=== PATIENT | male | born 1970 | race Caucasian/White ===

== ENCOUNTER 2019-02-09 09:53 | Observation (INO) | payer BC ==
--- NOTE | 2019-02-09 10:24 | ED ---
Throat Pain/Nasal Congestion - HPI Summary HPI Summary: Pt is a 48 y/o M presenting to the ED with a chief complaint of vision issues. He states that on 01/28 he woke up with a blurred spot in his R eye that has not gotten better. Today, 02/09, he went to the outsole tacker for a visual field test and they found deficits. He also reports intermittent unsteady gait which he was told was vertigo, and thinks that his visual issue may have started multiple years ago when he experienced a brief episode of burning in his eye. He denies slurred speech, facial droop, or diplopia. Only hx is hyperlipidemia. Collections Representative report states he has inferior quadrantanopia of the R eye. - History of Current Complaint Chief Complaint: EDNeurologicalDeficit Time Seen by Provider: 02/09/19 09:57 Hx Obtained From: Patient Onset/Duration: Sudden Onset, Lasting Weeks, Still Present Severity: Mild Associated Signs And Symptoms: Positive: Negative Cough: None - Allergies/Home Medications Allergies/Adverse Reactions: Allergies Allergy/AdvReac Type Severity Reaction Status Date / Time No Known Allergies Allergy Verified 02/09/19 10:02 Home Medications: Home Medications Fenofibrate(NF) [Tricor(NF)] 145 mg PO BEDTIME 02/09/19 [History Confirmed 02/09] Finasteride TAB* [Proscar TAB*] 5 mg PO DAILY 02/09/19 [History Confirmed ] Terazosin HCl 5 mg PO BEDTIME 02/09/19 [History Confirmed 02/09/19] PMH/Surg Hx/FS Hx/Imm Hx Previously Healthy: Yes Endocrine/Hematology History: Denies: Hx Diabetes Cardiovascular History: Reports: Hx Hypercholesterolemia Denies: Hx Hypertension Infectious Disease History: No Infectious Disease History: Denies: Traveled Outside the [place] in Last 30 Days - Family History Known Family History: Positive: Other - Osteoarthritis (great great aunt) - Social History Alcohol Use: Occasionally Hx Substance Use: No Substance Use Type: Reports: None Hx Tobacco Use: Yes Smoking Status (MU): Current Some Day Smoker Type: Cigarettes Amount Used/How Often: 8-10 cigarettes/day Length of Time of Smoking/Using Tobacco: On/off 22 years Have You Smoked in the Last Year: No Review of Systems Positive: Blurred Vision. Negative: Diplopia Positive: Other - unsteady gait Neurological: Negative - facial droop Negative: Slurred Speech All Other Systems Reviewed And Are Negative: Yes Physical Exam - Summary Physical Exam Summary: Constitutional: Well-developed, Well-nourished, Alert. (-) Distressed Skin: Warm, Dry HENT: Normocephalic; Atraumatic Eyes: Conjunctiva normal, EOMI, no nystagmus. OD: inferior temporal visual deficit, OS: inferior nasal temporal deficit. Please see HPI for further opthalmologic exam Neck: Musculoskeletal ROM normal neck. (-) JVD Cardio: Rhythm regular, rate normal, Heart sounds normal; Intact distal pulses; Radial pulses are 2+ and symmetric. (-) Murmur Pulmonary/Chest wall: Effort normal. (-) Respiratory distress, (-) Wheezes, (-) Rales Abd: Soft. (-) Tenderness, (-) Distension, (-) Guarding, (-) Rebound Musculoskeletal: (-) Edema Lymph: (-) Cervical adenopathy Neuro: Alert, PERRL, Oriented x3, Strength normal, Cranial nerves II-XII are grossly intact. SILT, Strength 5/5 BUE and BLE, (-) Dysmetria, (-) Nystagmus, ambulates w steady gait. Psych: Mood and affect Normal Triage Information Reviewed: Yes Vital Signs On Initial Exam: Initial Vitals Temp Pulse Resp BP Pulse Ox 98.5 F 85 16 150/124 99 02/09/19 10:01 02/09/19 10:01 02/09/19 10:01 02/09/19 10:01 02/09/19 10:01 Vital Signs Reviewed: Yes Diagnostics - Vital Signs Vital Signs Temp Pulse Resp BP Pulse Ox 02/09/19 10:01 98.5 F 85 16 150/124 99 - Laboratory Result Diagrams: 02/09/19 10:30 02/09/19 10:30 Lab Statement: Any lab studies that have been ordered have been reviewed, and results considered in the medical decision making process. - EKG 1028 Cardiac Rate: NL - 72bpm EKG Rhythm: Sinus Rhythm ST Segment: Normal Ectopy: None Summary of EKG Findings: An EKG at 1028 shows NSR at 72bpm with nml axis, nml intervals. No STEMI. No acute changes. Re-Evaluation - Re-Evaluation 1st re-eval Re-Evaluation Time: 10:50 Comment: Upon drawing labs, pt experienced vagal episode. He was given 1 L of fluids and his vitals are stable. EENT Course/Dx - Course Course Of Treatment: 48-year-old male with a history of high cholesterol presents with right visual field deficit. - Aside from visual field deficit neurological exam unremarkable. Patient is out of the acute stroke window given the chronicity of symptoms. - Discussed with neurologist and will get MRI MRA to further workup stroke. - Diagnoses Provider Diagnoses: Visual changes Discharge - Sign-Out/Discharge Documenting (check all that apply): Patient Departure - Discharge Plan Condition: Stable Disposition: ADMITTED TO [facility] Referrals: [facility] [Outside] - Billing Disposition and Condition Condition: STABLE Disposition: Admitted to [facility] - Attestation Statements Document Initiated by Scribe: Yes Documenting Scribe: Estela Snow Provider For Whom Scribe is Documenting (Include Credential): Marina Briones MD. Scribe Attestation: IEstela, scribed for Marina Briones MD. on 02/09/19 at 1144. Scribe Documentation Reviewed: Yes Provider Attestation: The documentation as recorded by the scribe, Estela Snow accurately reflects the service I personally performed and the decisions made by me, Marina Briones MD. Status of Scribe Document: Viewed Consult Consult: 1015 - I spoke with Dr. Cheatham who recommends admitting the patient to get an MRI of his brain. 1041 - Dr. Rodas will accept the pt for admission to [facility].
--- OUTSIDE RECORDS SUMMARY | 2019-02-09 10:30 | XMS REPORT | Continuity of Care Document ---
:1970 External Reference #:[id number] Author Name Lucia Velazquez O.D. Address [address] [place] [address] Care Team Providers Name Role Phone Ahsan Kearney M.D. Primary Care Physician Unavailable Payers Date Identification Numbers Payment Provider Subscriber Policy Number: [id number] [facility] Mayco Hong PayID: [id number] [address] [place] [id number] Problems Active Problems Provider Date Hypercholesterolemia Lucia Velazquez O.D. Onset: 02/04/2019 Visual disturbance Lucia Velazquez O.D. Onset: 02/04/2019 Family History Date Family Member(s) Observation Comments General Unknown Father Unknown Mother Unknown Social History Type Date Description Comments Sex Unknown Marital Status Legal Status: Work Status Full-Time Employment ETOH Use Denies alcohol use Tobacco Use Start: Unknown Patient is a current smoker, smokes every day Recreational Drug Use Denies Drug Use Smoking Status Reviewed: 02/04/19 Patient is a current smoker, smokes every day Allergies, Adverse Reactions, Alerts Description No Known Drug Allergies Medications Active Medications SIG Qnty Indications Ordering Provider Date Eql Omeprazole Unknown 20mg Tablets Terazosin HCL Unknown 5mg Capsules Fenofibrate Micronized 145 mg Unknown 130mg Capsules Plan of Treatment 02/04/2019 - Lucia Vleazquez O.D.H53.8 Other visual disturbancesFollow up:n/ a VF and recheck with ts wed/ recheck pupils and color
--- OUTSIDE RECORDS SUMMARY | 2019-02-09 10:30 | XMS REPORT | Continuity of Care Document ---
:1970 External Reference #:[id number] Author Name Lucia Velazquez O.D. Address [address] [place] [address] Care Team Providers Name Role Phone Ahsan Kearney M.D. Primary Care Physician Unavailable Payers Date Identification Numbers Payment Provider Subscriber Policy Number: [id number] [facility] Mayco Hong PayID: [id number] [address] [place] [phone] Problems Active Problems Provider Date Hypercholesterolemia Lucia Velazquez O.D. Onset: 02/04/2019 Homonymous hemianopia Lucia Velazquez O.D. Onset: 02/09/2019 Visual disturbance Lucia Velazquez O.D. Onset: 02/04/2019 Family History Date Family Member(s) Observation Comments General Unknown Father Unknown Mother Unknown Social History Type Date Description Comments Sex Unknown Marital Status Legal Status: Work Status Full-Time Employment ETOH Use Denies alcohol use Tobacco Use Start: Unknown Patient is a current smoker, smokes every day Recreational Drug Use Denies Drug Use Smoking Status Reviewed: 02/09/19 Patient is a current smoker, smokes every day Allergies, Adverse Reactions, Alerts Description No Known Drug Allergies Medications Active Medications SIG Qnty Indications Ordering Provider Date Eql Omeprazole Unknown 20mg Tablets Terazosin HCL Unknown 5mg Capsules Fenofibrate Micronized 145 mg Unknown 130mg Capsules Procedures Date Code Description Status 02/04/2019 38993 New Patient Comprehensive Exam Completed Plan of Treatment 02/09/2019 - Lucia Velazquez O.D.H53.461 Homonymous bilateral field defects , right sideFollow up:3 mos here repeat vf
[2019-02-09 10:36] LABS: ABS Basophils 0.1 10^3/ul (0-0.2); ABS Eosinophils 0.2 10^3/ul (0-0.6); ABS Lymphocytes 2.6 10^3/ul (1.0-4.8); ABS Monocytes 0.8 10^3/ul (0-0.8); ABS Neutrophils 5.3 10^3/ul (1.5-7.7); Eosinophil % 2.4 %; Hematocrit 46 % (42-52); Hemoglobin 15.9 g/dL (14.0-18.0); Lymphocyte % 28.7 %; Mean Corpuscular HGB Conc 35 g/dL (31-36); Mean Corpuscular Hemoglobin 31 pg (27-31); Mean Corpuscular Volume 88 fL (80-94); Mean Platelet Volume 7.6 fL (7.4-10.4); Nucleated Red Blood Cells % 0.1; Platelet Count 238 10^3/uL (150-450); Red Cell Distribution Width 13 % (10-15)
[2019-02-09 10:49] LABS: INR 1.01 (0.82-1.09)
[2019-02-09] MEDS ORDERED: NS 0.9% 1000 ML** 1,000 ML IV ONE (10:58)
[2019-02-09 11:00] LABS: Albumin 4.5 g/dL (3.2-5.2); Albumin/Globulin Ratio 1.5 (1-3); BUN/Creatinine Ratio 11.8 (8-20); Calcium 9.8 mg/dL (8.6-10.3); EGFR African American 86.8 (>60); EGFR Non-African American 71.8 (>60); Globulin 3.1 g/dL (2-4); HDL Cholesterol 28.4 mg/dL; Potassium 3.8 mmol/L (3.5-5.0); Total Bilirubin 0.5 mg/dL (0.2-1.0); Total Protein 7.6 g/dL (6.4-8.9)
[2019-02-09] MEDS ORDERED: Aspirin 81 mg CHEW TAB* 81 MG TAB.CHEW PO SCH (11:00)
[2019-02-09] MEDS ORDERED: Clopidogrel TAB* 75 MG PO SCH (11:00)
[2019-02-09 12:31] LABS: Urine Appearance Clear; Urine Bacteria Absent (Absent); Urine Bilirubin Negative (Negative); Urine Blood Negative (Negative); Urine Color Straw; Urine Glucose Negative (Negative); Urine Ketones Negative (Negative); Urine Nitrite Negative (Negative); Urine Protein Negative (Negative); Urine Red Blood Cell Absent (Absent); Urine Specific Gravity 1.004 (1.010-1.030); Urine Urobilinogen Negative (Negative); Urine White Blood Cell Trace(0-5/hpf) (Absent)
[2019-02-09 12:37] LABS: TSH (Thyroid Stimulating Horm) 1.7 mcIU/mL (0.34-5.60)
--- NOTE | 2019-02-09 13:30 | CONS ---
NEUROLOGY CONSULTATION NOTE: DATE OF CONSULT: 02/09/19 CONSULTING PROVIDER: Marina Briones MD. REASON FOR CONSULT: Visual field deficit. CHIEF COMPLAINT: Loss of the right-sided visual field. HISTORY OF PRESENT ILLNESS: Mr. Mayco Lafleur is a 48-year-old left- handed man with history of hypertension, dyslipidemia, chews tobacco who woke up Thursday morning, 01/28/19, with a visual field deficit. He woke up at 7 a.m. His last known well was , 01/27/19. He noticed a constant blind spot in the right lower quadrant. He denied any headaches. He denied any double vision or blurry vision. He went to see Dr. Vazquez from ophthalmology, who did initially an ophthalmologic examination and found no abnormalities. He returned for visual field evaluation and was noted to have an inferior quadrantanopia towards the right side. This exam took place this morning. He was recommended to go to the ER for further evaluation of suspected stroke. The patient stated that over the past 5 years he has complaints of gait imbalance. He notices some swaying sometimes when ambulating. This occurs almost daily. Certain distractions like multiple environmental stimulation worsens the gait imbalance. Again, he denied any headaches, nausea, or focal weakness. He has no history of DVT or PE. He has no family history of stroke or seizures. In the ED, he had some laboratory testing that was normal. This included a WBC , hemoglobin, hematocrit, platelet count, INR, sodium, potassium, chloride, and creatinine. He had a glucose of 117. His TSH and vitamin B12 are pending. Cholesterol was 262, pending LDL level. He did not have a CT of the head as he is not a candidate for any endovascular therapy. NIH stroke scale was 1 for visual field cut. PAST MEDICAL HISTORY: Hypertension, chews tobacco, dyslipidemia. HOME MEDICATIONS: 1. Omeprazole 20 mg p.o. daily. 2. Finasteride 5 mg p.o. daily. 3. Fenofibrate 145 mg p.o. at bedtime. 4. Terazosin 5 mg p.o. at bedtime. ALLERGIES: No known drug allergies. FAMILY HISTORY: No family history of stroke or seizure. SOCIAL HISTORY: The patient is . He has 2 children. He denied any excessive alcohol use. He does drink alcohol occasionally. Right before this incident, he had friends visiting from [place] and he was consuming alcohol a few days before. He denied any daily tobacco use, but he does smoke cigarettes when he has irritation from chewing tobacco. He has been chewing tobacco for over 20 years. REVIEW OF SYSTEMS: A 14-point review of systems was obtained and otherwise negative, except for what was mentioned in the HPI. PHYSICAL EXAMINATION: Vitals: Temperature of 98.5, pulse of 85, respiratory rate of 16, oxygen of 99, blood pressure of 150/124. General: Well-nourished, well- developed man, in no acute distress. Head: Atraumatic, normocephalic without any obvious abnormality. Neck is supple and symmetric with no lymphadenopathy. No carotid bruits. Eyes: Normal sclerae and conjunctivae. Chest: Clear to auscultation bilaterally with no wheezing or rhonchi. Cardiovascular: Regular rate and rhythm with normal S1, S2 without any murmurs or gallops. Extremities: Normal range of motion with no cyanosis, hammertoes, or high arches. Skin: No skin lesions or lacerations. Psych: Broad affect and normal mood. He is easy to establish rapport with. Neurological Examination: Mental status: Awake, alert, oriented to person; place; time; and general circumstances. Speech and language; specifically comprehension, naming, and repetition were assessed and found to be normal. Cranial Nerves: Pupils equal, round, and reactive to light. Extraocular movements are intact. He has mild end-gaze nystagmus on the right. He has a prominent inferior quadrantanopia on the right, where he has loss of vision in the inferior nasal portion of the left eye and temporal inferior portion of the right eye. No ptosis. Dilated funduscopic examination reveals normal disk margins and venous pulsation. Motor Examination: Normal tone and bulk. He has got 5/5 strength in the upper and lower extremities with slightly less strength in the right shoulder abduction region, but this is mostly he stated because he is left- handed. Reflexes: 2+ on the right biceps, triceps, brachioradialis, knee and 2 in the left biceps, triceps, brachioradialis, and 1+ at the left knee; initially 2+ in the right biceps, triceps, brachioradialis, and right knee; 1+ in the ankle bilaterally. Downgoing plantar response bilaterally. Sensation is intact to light touch, pinprick throughout. There is no tactile extinction. Normal proprioception and vibratory sensation at the great toe bilaterally. Coordination: Normal finger- to-nose and [id number] testing bilaterally. Gait is normal stance and posture with no ataxia. ASSESSMENT AND RECOMMENDATIONS: Mr. Mayco Lafleur is a 48-year-old man who presented with an acute to subacute onset of visual field cut. His hand spring former had referred him here for stroke workup. 1. Acute to subacute right inferior quadrantanopia. Localization, this is mostly a lesion affecting the optic radiation. Cerebrovascular disorders account for most of these lesions. The location is mostly in the left occipital lobe given that he has no other localizing signs. Occasionally, these lesions involve the parietal lobe, but this would accompany some other neurological signs. NIH stroke scale is 1. He is not a candidate for IV TPA or mechanical thrombectomies as he is outside the therapeutic window. Once confirming this stroke with MRI, we will need to investigate the etiology. He does carry risk factors for stroke including hypertension, dyslipidemia, and chewing and smoking tobacco. However, hypercoagulable state should also be further evaluated mostly as an outpatient. Also, we need to evaluate for a patent foramen ovale or other cardioembolic sources. 2. Chronic history of vertigo and unsteady gait - unclear etiology. He does not have any evidence of neuropathy. We will evaluate for any central causes, although he is currently asymptomatic and is not complaining of any vertigo. RECOMMENDATIONS: Admit as observation. If the stroke workup is completed today , the patient can probably go home and follow up as an outpatient. I have ordered the MRI brain without contrast, MRA head without contrast, and an MRA neck without contrast. I do not suspect he has a tumor and therefore, did not order a contrasted study. The presentation is unlikely to be related to tumor given the sudden onset of symptoms the following morning. I have ordered a transthoracic echo with bubble study to look for PFO. I have started the patient on aspirin and Plavix. Please continue aspirin and Plavix therapy for a total of 21 days, then discontinue Plavix after 21 days on 03/03/19. No need for PT/OT/COMPUTER SALESPERSON RETAIL since the patient only has visual deficits. Neuro checks every 4 hours. I will discuss the case with Dr. Xavier. Follow up with neurology as an outpatient once the stroke workup is completed. [id number]/[facility] #: [id number] ADDENDUM: There is a lesion on the MRI involving the left occipital lobe. This does not look like a subacute stroke but instead a small tumor with a slight hemorrhagic core. Other differential diagnosis include abscess, subacute stroke with hemorrhage, or demyelinating disease. I have ordered an MRI brain with contrast for further evaluation. Discontinued the DAPT for now. I have updated the patient this evening. TARYN
[2019-02-09] MEDS ORDERED: Atorvastatin* 80 MG TAB PO SCH (17:00)
[2019-02-09] MEDS ORDERED: Atorvastatin* 40 MG TAB PO SCH (17:00)
--- NOTE | 2019-02-09 18:25 | HP ---
CC: Dr. Kearney; Dr. Vazquez; Dr. Cheatham * HISTORY AND PHYSICAL: DATE OF ADMISSION: 02/09/19 TIME OF EVALUATION: 11:15 a.m. PRIMARY CARE PROVIDER: Dr. Kearney. PERSONAL INVESTMENT ADVISER: Dr. Vazquez. CONSULTING NEUROLOGIST: Dr. Cheatham. CHIEF COMPLAINT: "I cannot see right from my right eye." HISTORY OF PRESENT ILLNESS: Mr. Lafleur is a 48-year-old male with a past medical history of hypertension, dyslipidemia, tobacco abuse, BPH, who presents to the emergency room with complaint of visual changes. He states he woke up on 01/28/19 with a visual field cut. He states that he went to look at himself in the mirror and realized that he was missing part of the picture. He localized this blind spot on the right lower quadrant of his visual field. He went to see Ophthalmology and described that his initial evaluation was normal. The visual disturbance persisted and he went for a followup and had a visual field evaluation where he was noted to have an inferior quadrantanopia towards the right side, so he was referred to the emergency room for further evaluation due to concern for stroke. The patient denies any similar episode of visual change like this in the past. He states that more than 10 years ago, he was evaluated for dizziness and gait imbalance, but he does not remember receiving a specific diagnosis. He denies headache, nausea, vomiting, chest pain, palpitations, diarrhea, urinary complaints, or any other focal deficit. There is no numbness, tingling , change in speech, localized weakness. PAST MEDICAL HISTORY: 1. Hypertension. 2. Hyperlipidemia. 3. BPH. 4. Tobacco abuse. MEDICATION LIST: 1. Fenofibrate 145 mg p.o. at bedtime. 2. Finasteride 5 mg p.o. daily. 3. Omeprazole 20 mg p.o. daily. 4. Terazosin 5 mg p.o. at bedtime. ALLERGIES: No known drug allergies. FAMILY HISTORY: His parents are alive and well. There is no family history of stroke or seizure in the parents or siblings. He thinks his grandfather of a heart attack, but he is not sure. SOCIAL HISTORY: The patient is a smoker. Currently, he chews tobacco every day. He states that 1 can will last him 3 days and he has been doing that for over 20 years. He states that during the week he will smoke 2 to 3 cigarettes when he has irritation in his mouth when chewing tobacco and is unable to do so. He states that he drinks 2 to 3 beers a month and he denies any drug use. Surrogate decision maker is his , Gerri Lafleur, phone number is [phone]. REVIEW OF SYSTEMS: A 14-point review of systems was performed and all the pertinent negative and positive findings are per the HPI. PHYSICAL EXAMINATION GENERAL: The patient is a pleasant, middle-aged gentleman, sitting up in the ED stretcher, in no acute distress. VITAL SIGNS: Temperature 98.5, heart rate 77, respiratory rate is 14, oxygen saturation was 100% on room air, blood pressure was 154/93. HEENT: Pupils are equal, reactive to light. Moist mucous membranes. NECK: Supple. I do not identify any carotid bruits. CHEST: Breath sounds present bilaterally with no added sounds. CVS: Normal S1, S2. Regular rate and rhythm without murmurs noted. ABDOMEN: Soft, nondistended, nontender. Bowel sounds are present. EXTREMITIES: No edema. NEURO: The patient is alert, awake, oriented x3 and able to follow commands. His speech is clear and he has good comprehension. Cranial nerves II through XII are grossly normal. He has visual field cut of the inferior quadrant on the right. He can move all 4 extremities. Strength is 5/5 in all 4 extremities. Reflexes are 1+ in both knees and there is a downgoing plantar response bilaterally. Sensation is intact. [id number] and hxnk-zn-[id number] are normal. DIAGNOSTIC STUDIES/LAB DATA: The patient had a CBC that showed a WBC of 9, hemoglobin of 15.9, hematocrit of 46, platelets of 238. INR is 1.01. Chemistry showed a sodium of 138, potassium of 3.8, chloride of 105, bicarb of 27, BUN of 13, creatinine of 1.1, glucose of 117, lactic acid is 1.7, calcium is 9.8. LFTs are normal except for mild elevation of the ALT at 55. Lipid profile showed triglycerides of 414, cholesterol of 262 with an LDL of 164. TSH is 1.7. Urinalysis showed trace LE. EKG done 02/09/19 at 10:24 a.m. shows sinus rhythm at 72 beats per minute with no acute ischemic changes. There is no prior EKG to compare. ASSESSMENT AND PLAN: Mr. Lafleur is a 48-year-old male with a past medical history of hypertension, hyperlipidemia, benign prostatic hypertrophy, tobacco abuse, who presents to the emergency room with complaints of right-sided visual field cut, being admitted for probable cerebrovascular accident workup. 1. Probable cerebrovascular accident. The patient's description of his symptoms is suggestive of an occipital area cerebrovascular accident. The plan is to have him admitted as observation to the telemetry floor and he was already seen in consultation by Neurology (Dr. Cheatham) who recommended treatment with aspirin, Plavix, statin; echocardiogram with bubble study; MRI brain, MRA head, and MRA neck without contrast. At this point, his recommendation is for aspirin and Plavix therapy for 21 days and then continue only aspirin. He will be monitored with neuro checks on telemetry. The patient was educated about his diagnosis and his risk factors including his history of hypertension, hyperlipidemia and tobacco use. 2. Hypertension. We will continue terazosin. 3. Benign prostatic hypertrophy. We will continue terazosin and finasteride. 4. Hyperlipidemia. We will give him high-dose statin, atorvastatin 80 mg as this will address his hypertriglyceridemia and elevated LDL. 5. DVT prophylaxis: The patient has a score of 1 on the DVT Prophylaxis Risk Assessment Guide and he will have SCDs while in bed and we will encourage ambulation. 6. Code status is full. TIME SPENT: Approximately 50 minutes was spent with the patient's interview, medical records review, physical examination to complete this admission, more than half of this time was spent upcx-lz-[id number] with the patient and coordination of care. [id number]/[facility] #: [id number] [facility]ITAL[facility]avan
[2019-02-09] MEDS ORDERED: Gadoteridol* (CONTRAST) 279.3 MG/ML 10 ML IV ONE (20:32)
[2019-02-09] MEDS ORDERED: Terazosin CAP* 5 MG PO SCH (21:00)
[2019-02-10] MEDS ORDERED: Pantoprazole TAB * 40 MG TAB PO SCH (09:00)
[2019-02-10] MEDS ORDERED: Finasteride TAB* 5 MG PO SCH (09:00)
[2019-02-10] MEDS ORDERED: Aspirin EC TAB* 81 MG TAB.EC PO SCH (09:00)
--- NOTE | 2019-02-10 11:40 | ECHO ---
*[facility]* [place] [address] Fax #: [phone] Transthoracic Echocardiogram Patient: Mayco Hong : 1970 Study Date: 02/10/2019 Age: 48 Gender: M HR: 66 bpm Height: 69 in /175.3 cm BSA: 2.04 m^2 Weight: 194.6 lb /88.5 kg BMI: 28.8 kg/m^2 *Tire Fabric Inspector: * Nina Cruz RDCS RN *Referring Physician: * Daysi Cheatham *Reading Physician: * Edwar Rogers MD Indications: CVA. History: Risk factors: Current tobacco use. Hypertension. Dyslipidemia. Conclusions Summary: - Left ventricle: The cavity size is normal. Wall thickness is at the upper limits of normal. Systolic function is normal. The estimated ejection fraction is 60-65%. - Atrial septum: Bubble study was negative - Mitral valve: There is trace to mild regurgitation. Study data: Transthoracic echocardiogram. Procedure: Transthoracic echocardiography was performed. Image quality was fair. The study was technically limited due to body habitus and Smoking history. Intravenous agitated saline was administered. A bubble study was performed on Images 8 and 9. Complete 2D, spectral Doppler, and color flow Doppler. Location: Bedside. Patient status: Observation. Patient room number: 433. No prior study is available for comparison. Rhythm: Normal sinus rhythm. Findings Left ventricle: The cavity size is normal. Wall thickness is at the upper limits of normal. Systolic function is normal. The estimated ejection fraction is 60-65%. Wall motion is normal; there are no regional wall motion abnormalities. Left ventricular diastolic function parameters are normal. Right ventricle: The cavity size is normal. Systolic function is normal. Left atrium: The atrium is normal in size. Right atrium: The atrium is normal in size. Atrial septum: No defect or patent foramen ovale is identified. Bubble study was negative Mitral valve: The leaflets are mildly thickened. There is no evidence of stenosis. There is trace to mild regurgitation. Aortic valve: The valve is structurally normal. The valve is trileaflet. Cusp separation is normal. There is no evidence of stenosis. There is no regurgitation. Tricuspid valve: The valve is structurally normal. There is no evidence of stenosis. There is trace regurgitation. Pulmonic valve: The valve is structurally normal. There is no evidence of stenosis. There is trace regurgitation. Aorta: Aortic root: The aortic root is appears normal. Ascending aorta: The ascending aorta is not dilated. Aortic arch: The aortic arch is not dilated. Pericardium: There is no pericardial effusion. Pulmonary arteries: The main pulmonary artery is normal-sized. Systolic pressure can not be accurately estimated. Systemic veins: Not well visualized. Measurements Left ventricle Value Ref Aortic valve Value Ref ANJELICA, LAX 4.7 cm 4.2 - Ting diam, ED 2.1 cm ---- 5.8 Ting diam/bsa, ED 1.0 cm/m^2 ---- ESD, LAX 3.1 cm 2.5 - Peak v, S 1.11 m/sec ---- 4.0 VTI, S 21.5 cm ---- FS, LAX 33 % 25 - 43 Mean grad, S 3.0 mm Hg ---- Mid-wall FS 15 % -------- Peak grad, S 5.0 mm Hg ---- PW, ED (H) 1.1 cm 0.6 - LVOT/AV, VTI ratio 0.95 ---- 1.0 E', lat ting, TDI 10.1 cm/sec >=10.0 Mitral valve Value Re f E/e', lat ting, TDI 9 -------- Peak E 0.87 m/sec ---- E', med tign, TDI 8.5 cm/sec >=7.0 Peak A 0.69 m/sec -- -- E/e', med ting, TDI 10 -------- Decel time 180 ms ---- E', avg, TDI 9.3 cm/sec -------- Peak grad, D 3.1 mm Hg ---- E/e', avg, TDI 9 <=14 Peak E/A ratio 1.3 -- -- LVOT Value Ref Pulmonic valve Value Ref Peak mvais, S 1.04 m/sec -------- Peak v, S 0.75 m/sec ---- VTI, S 20.4 cm -------- Peak grad, S 2.0 mm Hg ---- Mean grad, S 2 mm Hg -------- Aortic root Value Ref Ventricular septum Value Ref Root diam 3.3 cm <4.2 IVS, ED 1.0 cm 0.6 - 1.0 Ascending aorta Value Ref AAo AP diam, S 3.0 cm ---- Right ventricle Value Ref ANJELICA minor ax, A4C (H) 3.7 cm 1.9 - Aortic arch Value Ref mid 3.5 Arch diam 2.5 cm ---- Left atrium Value Ref Decending aorta Value Ref AP dim ES, LAX (L) 2.9 cm 3.0 - Chanda peak mavis 0.64 m/sec ---- 4.0 ML dim, A4C 3.3 cm -------- SI dim, A4C 4.1 cm -------- Vol/bsa, ES, 1-p 13 ml/m^2 12 - 37 A4C Vol/bsa, ES, A/L 18 ml/m^2 16 - 34 Right atrium Value Ref ML dim, ES, A4C 3.6 cm 2.6 - 4.4 SI dim, ES, A4C 4.0 cm 3.4 - 5.3 Legend: (L) and (H) guillermina values outside specified reference range. Prepared and electronically signed by Edwar Rogers MD 02/10/2019 11:39
--- NOTE | 2019-02-10 14:40 | PN ---
Subjective Date of Service: 02/10/19 Length of Stay: 1 Days Neurology is following for stroke. Interval History: There has been no new clinical changes overnight. He still has right lower quadrant hemianopsia. He denied any focal weakness or paresthesia. He has history of mild disorientation related to when he was on statin therapy. He is not sure if it was related to statin therapy though because it continued after he discontinued the medication. Spouse at bedside confirmed that he snores at night and, at times, has apnea. IMAGING STUDIES: - MRI brain without contrast completed on 02/09/2019: subacute infarct medial left occipital lobe. - MRA head and neck completed on 02/09/2019: no LVO or ICA stenosis. - MRI brain with contrast completed on 02/09/2019 as I was suspicious for tumor in the occipital region; There is enhancement in the medial occipital lobe but this can be seen in subacute stroke. Repeating an MRI brain with and without contrast was recommended in 3 weeks. 2D TTE completed on 02/09/2019: EF: 60-65%. Bubble study was negative. Review of Systems: Denied CP, SOB, or palpitations. Objective Active Medications: Aspirin (Aspirin Ec Tab*) 81 mg PO DAILY [facility] Last Admin: 02/10/19 09:50 Dose: 81 mg Atorvastatin Calcium (Lipitor*) 80 mg PO 2100 ONE Stop: 02/10/19 21:01 Finasteride (Proscar Tab*) 5 mg PO DAILY [facility] Last Admin: 02/10/19 08:39 Dose: 5 mg Pantoprazole Sodium (Protonix Tab*) 40 mg PO DAILY [facility] Last Admin: 02/10/19 08:39 Dose: 40 mg Terazosin HCl (Hytrin Cap*) 5 mg PO BEDTIME [facility] Last Admin: 02/09/19 21:41 Dose: 5 mg Vital Signs 02/09/19 02/09/19 02/09/19 15:15 19:00 23:00 Temperature 98.0 F 98.2 F 97.5 F Pulse Rate 62 72 82 Respiratory 16 18 14 Rate Blood Pressure 142/83 148/74 114/67 (mmHg) O2 Sat by Pulse 99 98 99 Oximetry 02/10/19 02/10/19 02/10/19 03:00 07:50 11:35 Temperature 97.6 F 98.4 F 97.8 F Pulse Rate 59 70 92 Respiratory 14 20 20 Rate Blood Pressure 136/74 127/70 131/75 (mmHg) O2 Sat by Pulse 99 100 98 Oximetry Intake and Output Last 24 Hours 02/08/19 02/09/19 02/10/19 02/11/19 06:59 06:59 06:59 06:59 Intake Total 1690 400 Output Total 0 Balance 1690 400 Weight 199 lb Intake: IV Fluids 1000 Oral 690 400 Output: Urine 0 Oxygen Devices in Use Now: None Neurology Exam: General: Well nourished, well developed, and in no acute distress HEENT: Normocephelic/atraumatic, sclera anicteric, mucous membranes moist Neck: Supple Chest: Clear to auscultation bilaterally Cardiovascular: Regular rate and rhythm without murmurs, rubs, gallops Extremities: No clubbing, cyanosis, or edema Neurological Findings: Awake, alert, and oriented to person, place, and time. Speech: fluent without dysarthria, repetition intact Cranial Nerve: PERRL, EOM intact, right inferior quadrantanopia, no nystagmus, face symmetric bilaterally, facial sensation intact, hearing intact to finger rub bilaterally, palate elevates symmetrically, tongue midline, SCM and Trapezius s/s. Motor: s/s throughout, proximal and distal extremities x4 tone/bulk normal Sensation: intact to LT/PP bilaterally upper and lower extremities Deep Tendon Reflex: 2+ symmetric in the upper/lower extremities, Babinski - down going Finger to nose, rapid alternating movements intact without tremor, no dysdiadochokinesia Gait: intact with good arm swing and stride Result Diagrams: 02/09/19 10:30 02/09/19 10:30 Microbiology and Other Data: Microbiology 02/09/19 12:05 Urine Culture - Final Urine No Growth (<1,000 CFU/mL) Assessment/Plan 1. Acute-subacute left PLATFORM CONSULTANT nonhemorrhagic stroke with petichael hemorrhage- - Repeat MRI continues to show enhancement around this region, which can be seen with subacute stroke. - NIHSS 1. Unchanged - He has no evidence of intracranial stenosis. He does have multiple risk factors for stroke: dyslipidemia, hypertension, tobacco abuse. The etiology of the stroke is cryptogenic. Given his age, hypercoagulable state and cardio emboli needs to be excluded. 2. Suspect BRIDGET 3. HTN 4. Dyslipidemia Recommendation: - The patient needs to have a THEO to evaluate for atrial or ventricular thrombus. He has no fevers. This can be done as in or outpatient. - Hypercoagulable panel to be done as an outpatient. - If THEO is negative, he will need a loop recorder placed to check for atrial fibrillation, especially since he has history of untreated BRIDGET - Continue aspirin 81 mg daily and started atorvastatin 80 mg nightly. Discontinue fenofibrates. If he develops complications related to statin therapy, then switch to Zetia. - We agreed against DAPT since he has some petechial hemorrhage on MRI and his symptoms started more than a week ago. - Stroke education was completed - Repeat MRI brain with and without contrast in 3-4 weeks to revaluate the area of enhancement. It should resolve by that time. Please arrange this with the patient's PCP. - There is no indication for anticoagulation therapy. - Needs an outpatient polysomnography. - We will arrange a follow-up appointment in 6-8 weeks. I will sign off but please contact me for any questions or concerns.
[2019-02-10 15:34] VITALS: BP 135/76
[2019-02-10] MEDS ORDERED: Atorvastatin* 80 MG TAB PO ONE (21:00)
--- NOTE | 2019-02-10 22:33 | DS ---
CC: Dr. Kearney; Dr. Vazquez; Dr. Cheatham * DISCHARGE SUMMARY: DATE OF ADMISSION: 02/09/19 DATE OF DISCHARGE: 02/10/19 PRIMARY CARE PROVIDER: Dr. Kearney DELIVERY DRIVER/CUSTOMER SERVICE: Dr. Vazquez CONSULTING NEUROLOGIST: Dr. Cheatham DISCHARGE DIAGNOSIS: Left occipital lobe cerebrovascular accident. SECONDARY DIAGNOSES: 1. Hypertension. 2. Hyperlipidemia. 3. Benign prostatic hypertrophy. 4. Tobacco abuse. MEDICATION LIST: 1. Finasteride 5 mg p.o. daily. 2. Omeprazole 20 mg p.o. daily. 3. Terazosin 5 mg p.o. at bedtime. Medication change: 1. Fenofibrate was discontinued. New medications: 1. Aspirin 81 mg p.o. daily. 2. Atorvastatin 80 mg p.o. at bedtime. HOSPITAL COURSE: is a 48-year-old male with a past medical history as stated above who presented to the emergency room with complaint of sudden loss of his right inferior quadrant visual field that happened on . He went to bed well and he woke up on 01/28/19 with this visual field cut. For more details about his presentation, I refer you to his history and physical, but in summary, the patient was admitted for a CVA workup. The patient's lipid profile showed triglycerides of 440 with total cholesterol 262 and LDL of 164. He had an MRI of the brain that showed imaging compatible with subacute infarct of the left occipital lobe. There is associated petechial hemorrhage with only mild local mass effect. Mild chronic small vessel disease is likely. The patient had an MRA of the brain that showed no acute occlusive disease of the proximal major intracranial vessels. The distal P4 segments of the left CARDIOLOGY PHYSICIAN are diminutive in the region of the infarcted left occipital lobe. No significant stenosis or aneurysm. MRA of the neck showed no acute occlusive disease. Transthoracic echocardiogram was performed and it showed that the left ventricle cavity size is normal. Wall thickness is at the upper limits of normal. Systolic function is normal. Ejection fraction is 60% to 65%. Bubble study was negative and there is trace to mild mitral valve regurgitation. The patient had no significant arrhythmia while on telemetry and he developed no other symptoms. Dr. Cheatham was concerned that this occipital lobe lesion could be a tumor so the patient underwent an MRI of the brain with contrast that showed findings consistent with a subacute infarct on the medial left occipital lobe and followup MRI in 2 to 3 weeks is recommended. Minimal chronic small vessel ischemic disease. The patient was seen in followup by Dr. Cheatham. His impression is the patient has an acute to subacute left CARDIOLOGY PHYSICIAN nonhemorrhagic stroke with petechial hemorrhage. Repeat MRI continues to show enhancement around the region which can be seen with subacute stroke. No evidence of intracranial stenosis. Multiple risk factors for stroke including hyperlipidemia, hypertension, tobacco abuse, but the etiology of the stroke at this time is cryptogenic. Given his age, hypercoagulable state, cardiac emboli needs to be excluded. His recommendation was for a transesophageal echocardiogram to evaluate for atrial or ventricular thrombus. He felt that this could be done as in or outpatient. The patient was offered the option to stay overnight to have this transesophageal echocardiogram done tomorrow, but he rather go home and have this done as outpatient. His , Gerri Lafleur, works at Dr. Rogers's office and made arrangement for the patient to have this transesophageal echocardiogram done on 02/16/19 or 02/18/19. Dr. Cheatham also recommended hypercoagulable panel to be done as an outpatient and if the transesophageal echocardiogram is negative, he will need a loop recorder placed to check for atrial fibrillation, especially because the patient has a history of untreated obstructive sleep apnea. He also recommended continuation of aspirin 81 mg daily and atorvastatin 80 mg nightly. The patient said that he tried atorvastatin in the past and he had some malaise that was attributed to the medication, reason why it was discontinued and he was switched to fenofibrate, but he is willing to try the medication again. He was advised about the most common side effects that include muscle aches and elevation of LFTs. Dr. Cheatham decided against dual antiplatelet therapy since he has some petechial hemorrhage on the MRI and his symptoms started more than a week ago. The plan is for the patient to be discharged today and Dr. Cheatham will make arrangements for followup with Dr. Welch or Yifan Agarwal NP, in 6 to 8 weeks. His PCP will need to arrange for MRI of the brain with and without contrast in 3 to 4 weeks to reevaluate the area of enhancement. He will also need an outpatient sleep study to readdress obstructive sleep apnea. His transesophageal echocardiogram order was sent to Katharine bhatt at the [facility]. The patient and his received education about his diagnosis and further workup necessary as an outpatient. I discussed with Dr. Cheatham and he feels the patient can return to his work but decision about driving should be made by Ophthalmology as he will need further vision evaluation to decide about limitations. The patient is feeling well at this time. His only newer deficit is his right inferior quadrant visual field cut. He was educated about other symptoms that would prompt a visit to the emergency room. He is medically stable to be discharged home. PHYSICAL EXAMINATION: Vital Signs: Temperature 98.2, heart rate is 84, respiratory rate is 18, oxygen saturation 98% on room air, blood pressure is 135 /76. General: The patient is a pleasant gentleman sitting up in bed, in no acute distress. CVS: Normal S1, S2. Regular rate and rhythm. Chest: Breath sounds present bilaterally with no added sounds. Abdomen is soft, bowel sounds are present. Neuro: He is alert and oriented x3, able to move all 4 extremities. He has the above mentioned visual field cut. DIET: Heart healthy diet. ACTIVITIES: As tolerated. DISPOSITION: To home. STATUS WHILE IN THE HOSPITAL: Observation. Please keep in mind this is a summarized version of this patient's hospital stay. If you need more information , please feel free to call me at [phone] or please obtain the full medical records. TIME SPENT: Approximately 50 minutes was spent to complete this discharge. [id number] #: [id number] TARYN
== END 2019-02-10 17:35 | disposition home or self-care (01) ==
LOC: ED 09:53 → MEDTELE 11:16
PROVIDERS: ADMIT Internal Medicine; ATTEND Internal Medicine
DX: I63.89 Other cerebral infarction (principal); I67.82 Cerebral ischemia; I10 Essential (primary) hypertension; E78.5 Hyperlipidemia, unspecified; N40.0 Benign prostatic hyperplasia without lower urinary tract symptoms; Z79.899 Other long term (current) drug therapy; F17.220 Nicotine dependence, chewing tobacco, uncomplicated
CPT/HCPCS: 36415; 70544; 70547; 70551; 70552; 80053; 80061; 81003; 81015; 82607; 83605; 83721; 84443; 85025; 85610; 87086; 93005; 93306; 96360; 99284; 99406; A9270-GY; A9579; G0378